=== PATIENT | male | born 1965 | race Caucasian/White ===

== ENCOUNTER 2024-11-07 13:04 | Outpatient (RCR) | payer MEDICAID, SELFPAY | END 2024-11-15 23:59 | disposition home or self-care (01) | LOC: SCTC 13:04 | PROVIDERS: PCP Physician Assistant Medical; Referring Provider Physician Assistant Medical; Visit Provider Nurse Practitioner Family | DX: C61 Malignant neoplasm of prostate (principal); D75.1 Secondary polycythemia; K76.0 Fatty (change of) liver, not elsewhere classified; K22.70 Barrett's esophagus without dysplasia; I11.0 Hypertensive heart disease with heart failure; I50.9 Heart failure, unspecified; J44.9 Chronic obstructive pulmonary disease, unspecified | CPT/HCPCS: 99213; G0463 ==